=== PATIENT | male | born 1960 | race Caucasian/White ===

== ENCOUNTER 2019-06-07 13:52 | Inpatient (IN) ==
[2019-06-07] MEDS ORDERED: HYDROmorphone 2 MG/1 ML IVP ONE ×2 (13:57→14:48)
[2019-06-07] MEDS ORDERED: ONDANSETRON 4 MG/2 ML VIAL IVP ONE (14:54)
[2019-06-07] MEDS ORDERED: Sodium Chloride 0.9% 1,000 ML PRIMARY IV ONE (15:21)
[2019-06-07] MEDS: PROPOFOL 10 MG/1 ML (200 MG/20 ML) VIAL IV ONE ×2 (15:37→15:39)
[2019-06-07] MEDS ORDERED: DOCUSATE 100 MG CAPSULE PO PRN (20:09)
[2019-06-07] MEDS ORDERED: Ondansetron ODT Tab 4 MG TAB PO PRN (20:09)
[2019-06-07] MEDS ORDERED: LIDOCAINE W/ SODIUM BICARB 0.5 ML SYR SUBD PRN (20:09)
[2019-06-07] MEDS ORDERED: HYDROmorphone 2 MG/1 ML IVP PRN (20:09)
[2019-06-07] MEDS ORDERED: ACETAMINOPHEN 325 MG TABLET PO PRN (20:09)
[2019-06-07] MEDS ORDERED: ONDANSETRON 4 MG/2 ML VIAL IVP PRN (20:09)
[2019-06-07] MEDS ORDERED: CALCIUM CARBONATE 500 MG (TUMS) CHEWABLE TABLET PO PRN (20:09)
[2019-06-07] MEDS ORDERED: DIAZEPAM 5 MG TABLET PO PRN (20:09)
[2019-06-07] MEDS: oxyCODONE-ACETAMINOPHEN 5-325 TAB PO PRN (21:09)
[2019-06-08] MEDS: Lactated Ringers 1,000 ML PRIMARY IV SCH ×2 (00:12→13:10)
[2019-06-08] MEDS: oxyCODONE-ACETAMINOPHEN 5-325 TAB PO PRN ×3 (05:28→19:45)
[2019-06-08 05:46] LABS: BASOPHILS # (AUTO) 0.03 10*3/UL; BASOPHILS % (AUTO) 0.3 % (0-1); EOSINOPHILS # (AUTO) 0.11 10*3/UL; EOSINOPHILS % (AUTO) 1.2 % (0-8); Hematocrit [HCT] 42.9 % (42.0-52.0); LYMPHOCYTES # (AUTO) 2.44 10*3/uL; MEAN CORPUSCULAR HGB CONC 32.6 g/dL (33-37); MEAN CORPUSCULAR VOLUME 89.2 FL (80-90); MEAN PLATELET VOLUME 10.2 FL (7.4-12.2); MONOCYTES # (AUTO) 0.96 10*3/UL (0.3-0.8); MONOCYTES % (AUTO) 10.4 % (5-15); NEUTROPHILS % (AUTO) 61.6 % (50-80); RED BLOOD COUNT 4.81 10^6/uL (4.70-6.10)
[2019-06-08 05:52] LABS: PLATELET MORPHOLOGY COMMENT NORMAL MORPHOLOGY (NORM); RBC MORPHOLOGY COMMENT NORMAL MORPHOLOGY (NORM); WBC MORPHOLOGY COMMENT NORMAL MORPHOLOGY (NORM)
[2019-06-08] MEDS ORDERED: fentaNYL Inj 100 MCG/2 ML VIAL ONE (13:51)
[2019-06-08] MEDS ORDERED: fentaNYL Inj 100 MCG/2 ML VIAL IVP PRN ×2 (13:53→18:09)
[2019-06-08] MEDS ORDERED: fentaNYL Inj 250 MCG/5 ML VIAL ONE (14:08)
[2019-06-08] MEDS ORDERED: PROPOFOL 10 MG/1 ML (200 MG/20 ML) VIAL IV ONE (14:09)
[2019-06-08] MEDS ORDERED: ceFAZolin Inj 2gm (Premix) 2 GM/50 ML BAG IV ONE ×2 (14:20→15:46)
[2019-06-08] MEDS ORDERED: GLYCOPYRROLATE 0.2 MG/1 ML VIAL ONE (15:14)
[2019-06-08] MEDS ORDERED: Lactated Ringers 1,000 ML PRIMARY IV ONE (16:50)
[2019-06-08] MEDS ORDERED: BUPivacaine Inj 0.5% PF (5mg/ml) 10ml vial ONE (17:58)
[2019-06-08] MEDS ORDERED: ATROPINE SULFATE 0.4 MG/1 ML VIAL IVP PRN (18:09)
[2019-06-08] MEDS ORDERED: LIDOCAINE W/ SODIUM BICARB 0.5 ML SYR SUBD PRN (18:09)
[2019-06-08] MEDS ORDERED: HYDROmorphone 2 MG/1 ML IVP PRN (18:09)
[2019-06-08] MEDS ORDERED: Prochlorperazine Edisylate Inj 10mg/2ml vial IVP PRN ×2 (18:09→19:19)
[2019-06-08] MEDS ORDERED: ONDANSETRON 4 MG/2 ML VIAL IVP PRN ×3 (18:09→19:19)
[2019-06-08] MEDS ORDERED: Lactated Ringers 1,000 ML PRIMARY IV SCH (18:15)
[2019-06-08] MEDS ORDERED: KETOROLAC 30 MG/1 ML VIAL ONE (18:16)
[2019-06-08] MEDS ORDERED: ACETAMINOPHEN 325 MG TABLET PO PRN (19:19)
[2019-06-08] MEDS ORDERED: DOCUSATE 100 MG CAPSULE PO PRN (19:19)
[2019-06-08] MEDS ORDERED: Prochlorperazine Tab 10 MG TAB PO PRN (19:19)
[2019-06-08] MEDS ORDERED: CALCIUM CARBONATE 500 MG (TUMS) CHEWABLE TABLET PO PRN ×2 (19:19)
[2019-06-08] MEDS ORDERED: CELECOXIB 200 MG CAPSULE PO PRN (19:19)
[2019-06-08] MEDS ORDERED: KETOROLAC 15 MG/1 ML VIAL IVP PRN (19:19)
[2019-06-08] MEDS ORDERED: DIAZEPAM 5 MG TABLET PO PRN (19:19)
[2019-06-08] MEDS ORDERED: Ondansetron ODT Tab 8 MG TAB PO PRN (19:19)
[2019-06-08] MEDS ORDERED: diphenhydrAMINE 25 MG CAPSULE PO PRN (19:19)
[2019-06-08] MEDS ORDERED: Ondansetron ODT Tab 4 MG TAB PO PRN (19:19)
[2019-06-08] MEDS ORDERED: MAG HYDROX/AL HYDROX/SIMETH 30 ML SUSP PO PRN (19:19)
[2019-06-08] MEDS ORDERED: BISACODYL 5 MG TABLET PO PRN (19:19)
[2019-06-08] MEDS ORDERED: BISACODYL 10 MG SUPPOSITORY RECTAL PRN (19:19)
[2019-06-08] MEDS: D5-1/2NS + 20mEq KCL 1,000 ML PRIMARY IV SCH (19:47)
[2019-06-08] MEDS: HYDROmorphone 2 MG/1 ML IVP PRN (19:59)
[2019-06-09] MEDS: oxyCODONE-ACETAMINOPHEN 5-325 TAB PO PRN ×4 (00:13→15:59)
[2019-06-09] MEDS: ceFAZolin Inj 2gm (Premix) 2 GM/50 ML BAG IV SCH ×2 (00:14→07:52)
[2019-06-09 05:03] LABS: BASOPHILS # (AUTO) 0.03 10*3/UL; BASOPHILS % (AUTO) 0.2 % (0-1); EOSINOPHILS # (AUTO) 0.01 10*3/UL; EOSINOPHILS % (AUTO) 0.1 % (0-8); Hemoglobin [HGB] 13.6 g/dL (14.0-18.0); LYMPHOCYTES # (AUTO) 1.26 10*3/uL; MEAN CORPUSCULAR HGB CONC 33.2 g/dL (33-37); MEAN CORPUSCULAR VOLUME 90.5 FL (80-90); MEAN PLATELET VOLUME 10.1 FL (7.4-12.2); MONOCYTES % (AUTO) 6.8 % (5-15); NEUTROPHILS # (AUTO) 10.94 10*3/UL; NEUTROPHILS % (AUTO) 82.7 % (50-80); RED BLOOD COUNT 4.53 10^6/uL (4.70-6.10)
[2019-06-09 05:18] LABS: PLATELET MORPHOLOGY COMMENT NORMAL MORPHOLOGY (NORM); RBC MORPHOLOGY COMMENT NORMAL MORPHOLOGY (NORM); WBC MORPHOLOGY COMMENT NORMAL MORPHOLOGY (NORM)
[2019-06-09] MEDS: ENOXAPARIN SODIUM 40 MG/0.4 ML SYRINGE SUBCUT SCH (08:56)
[2019-06-09] MEDS: D5-1/2NS + 20mEq KCL 1,000 ML PRIMARY IV SCH (11:30)
[2019-06-09] MEDS: HYDROmorphone 2 MG/1 ML IVP PRN (16:45)
[2019-06-09] MEDS: ACETAMINOPHEN 325 MG TABLET PO PRN (20:10)
[2019-06-09] MEDS: OMEPRAZOLE 20 MG CAPSULE PO SCH (20:10)
[2019-06-10] MEDS: ACETAMINOPHEN 325 MG TABLET PO PRN (02:21)
[2019-06-10] MEDS: OMEPRAZOLE 20 MG CAPSULE PO SCH ×2 (08:12→20:17)
[2019-06-10] MEDS: HYDROcodone-APAP 7.5 MG-325 MG TABLET PO PRN ×4 (08:13→20:19)
[2019-06-10] MEDS: ENOXAPARIN SODIUM 40 MG/0.4 ML SYRINGE SUBCUT SCH (08:14)
[2019-06-11 00:31] VITALS: O2SAT 95
[2019-06-11] MEDS: HYDROcodone-APAP 7.5 MG-325 MG TABLET PO PRN ×2 (04:39→08:51)
[2019-06-11 06:31] VITALS: BP 120/59; RESP 28; TEMP 97.2
[2019-06-11] MEDS: ENOXAPARIN SODIUM 40 MG/0.4 ML SYRINGE SUBCUT SCH (08:51)
[2019-06-11] MEDS: OMEPRAZOLE 20 MG CAPSULE PO SCH (08:52)
== END 2019-06-11 10:55 | disposition home or self-care (01) | DRG 494 ==
LOC: ER 13:52 → MED/SURG 18:28
PROVIDERS: ADMIT Orthopaedic Surgery; ATTEND Orthopaedic Surgery